=== PATIENT | male | born 1975 | race Hispanic/Latino ===

== ENCOUNTER 2021-05-05 10:15 | Outpatient (CLI) | payer BC | END 2021-05-05 10:16 | disposition home or self-care (01) | LOC: BURRAD 10:15 | PROVIDERS: ATTEND Registered Nurse Community Health | DX: M25.561 Pain in right knee (principal); M25.562 Pain in left knee; Z98.890 Other specified postprocedural states; Z87.828 Personal history of other (healed) physical injury and trauma ==